=== PATIENT | female | born 1990 | race Asian ===

== ENCOUNTER 2020-10-29 13:35 | Emergency (ER) | payer OTHER, SELFPAY ==
[2020-10-29 13:52] VITALS: BP 117/79; PULSE 82; RESP 16; TEMP 37.1; O2SAT 100
--- NOTE | 2020-10-29 14:15 | ED.GENADULT ---
HPI - General Adult General Chief complaint: Urogenital-Female Stated complaint: UTI Time Seen by Provider: 10/29/20 14:15 Source: patient Mode of arrival: ambulatory Limitations: no limitations History of Present Illness HPI narrative: 30-year-old female patient presents to the [facility] with complaints of urinary symptoms for the past 2 days. Patient states she has had some low back pain, or abdominal pain, burning with urination urgency and frequency. Denies any body aches or chills but states that yesterday she did have a low-grade fever of 99. Patient states she has had kidney infections before in the past. Denies any or breast-feeding at this time. Patient states she has been trying to drink water and flushed out denies taking any other medications for her symptoms. Patient also states that she noticed blood in her urine today when urinating. Related Data Allergies Allergy/AdvReac Type Severity Reaction Status Date / Time No Known Allergies Allergy Verified 10/29/20 14:09 Review of Systems Review of Systems: Narrative: CONSTITUTIONAL: Denies fever, chills, or sweats. EYES: Denies visual changes, redness, or discharge. ENT: Denies rhinorrhea, congestion, sore throat, or otalgia. CARDIOVASCULAR: Denies chest pain, palpitations, or edema. RESPIRATORY: Denies cough or dyspnea. GASTROINTESTINAL: Positive lower abdominal pain, nausea, denies vomiting, or diarrhea. GENITOURINARY: Positive dysuria. Hematuria. SKIN: Denies rash or itching. MUSCULOSKELETAL: Positive low back pain, denies joint pain, or myalgia. NEUROLOGIC: Denies headache, numbness, or weakness. PSYCHIATRIC: Denies anxiety or depression. PMFSH Comments At the time of my signature I agree with nursing past medical history, surgical, social, and family history. There is no relevant family history pertinent to the presenting complaint. Exam Narrative: Exam Narrative: GENERAL: Well-appearing, well-nourished, and in no acute distress. HEAD: Normocephalic, atraumatic. EYES: PERRLA and EOMI. ENT: Nares clear, no rhinorrhea or epistaxis. Mucous membranes moist. NECK: Supple. No lymphadenopathy CHEST: Clear to auscultation. No respiratory distress. HEART: Regular rate and rhythm. No murmur heard. Normal peripheral pulses. ABDOMEN: Soft, nontender, nondistended, normal active bowel sounds. Patient does have some left-sided CVA tenderness and very slight right-sided CVA tenderness on percussion. EXTREMITIES: Normal range of motion. No edema. SKIN: Warm, dry, no rash. NEURO: No focal deficits. Alert and oriented x3. Course Vital Signs Vital signs: Vital Signs Temperature 37.1 C 10/29/20 13:52 Pulse Rate 82 10/29/20 13:52 Respiratory Rate 16 10/29/20 13:52 Blood Pressure 117/79 10/29/20 13:52 Pulse Oximetry 100 10/29/20 13:52 Temperature 37.1 C 10/29/20 13:52 Pulse Rate 82 10/29/20 13:52 Respiratory Rate 16 10/29/20 13:52 Blood Pressure 117/79 10/29/20 13:52 Pulse Oximetry 100 10/29/20 13:52 Vital signs reviewed Medical Decision Making Differential Diagnosis Differential Diagnosis: Differential diagnosis: Uncomplicated lower UTI, uncomplicated UTI, pyelonephritis Discussed with patient that there is not much that showed up on the urine dip however given her symptoms and her history of kidney infections before in the past we will go ahead and start her on antibiotics. Discussed with her she can take Tylenol or ibuprofen as needed for pain and also take some [id number] AZO as needed. Discussed with her that if the urine comes back showing that she needs a different type of antibiotic we will call and change it at that time otherwise if she does not hear from that she needs to complete the antibiotic as prescribed. Patient verbalized understanding denies any other questions or concerns at this time. Vital Signs Vital Signs: Vital Signs Temperature 37.1 C 10/29/20 13:52 Pulse Rate 82 10/29/20 13:52 Res
== END 2020-10-29 14:29 | disposition home or self-care (01) ==
PROVIDERS: Emergency Provider Nurse Practitioner Family
DX: N30.01 Acute cystitis with hematuria (principal)
CPT/HCPCS: 81003; 81025; 87077; 87086; 87088; 87186; 99213; G0463

== ENCOUNTER 2021-06-02 10:51 | Emergency (ER) | payer OTHER, SELFPAY ==
--- NOTE | ~2021-06-02 | US_ITS ---
EXAMINATION: US pelvic complete w TV DATE: 06/02/2021 11:57 INDICATION: Low back pain TECHNIQUE: Multiple transabdominal and endovaginal sonographic images of the pelvis were obtained. COMPARISON: None. FINDINGS: The uterus measures 7.5 x 4.3 x 3.7 cm. The endometrial complex measures 4 mm. There appear s to be a 6 mm intramural fibroid. The right ovary measures 3.3 x 2.7 x 2.0 cm. The left ovary measur es 2.4 x 2.2 x 1.4 cm. There is normal vascular flow in the ovaries. There is no free fluid in the pe lvis. IMPRESSION: 1. No sonographic correlate for the patient's symptoms. Reviewed, dictated and finalized at location A.
[2021-06-02 11:02] VITALS: BP 121/91; PULSE 89; RESP 18; TEMP 36.7; O2SAT 100
--- NOTE | 2021-06-02 11:26 | ED.BACK ---
HPI - Back Pain/Injury General Chief Complaint: Back Pain/Injury Stated Complaint: back pain radiating to hip Time Seen by Provider: 06/02/21 11:00 Source: patient and RN notes reviewed Mode of arrival: ambulatory Limitations: no limitations History of Present Illness HPI Narrative: This is 30 year old female who presents for evaluation of low back pain. She states she woke up 2 weeks ago with mid lower back pain. Her pain is worse with bending over. She reports sharp pain that radiates to her hip when she bends over. She denies limb numbness or weakness. She reports lower abdominal pain but she started her menstrual cycle 2 days. She reports her cycle is starting early. She reports history of scoliosis and ovarian cyst. Related Data Allergies Allergy/AdvReac Type Severity Reaction Status Date / Time No Known Allergies Allergy Verified 06/02/21 11:05 Review of Systems Review of Systems: All systems reviewed & are unremarkable except as noted in HPI and below PMFSH Past Medical History Medical History (Updated 06/02/21 @ 13:02 by Radha Dasilva MD) Ovarian cyst Scoliosis Surgical History Surgical History (Updated 06/02/21 @ 11:28 by Radha Dasilva MD) No pertinent past surgical history Social History Social History (Updated 06/02/21 @ 11:28 by Radha Dasilva MD) Smoking status: Never smoker Exam Const: General: no acute distress and alert Orientation/consciousness: patient oriented x3 Eyes: EOM: EOMs intact bilaterally Resp: Effort & Inspection: normal respiratory effort and no retractions Auscultation: clear to auscultation bilaterally Cardio: Rate: regular rate Rhythm: regular rhythm Heart sounds: no murmurs GI: GI Palp: Yes Soft to palpation, Yes Tenderness to palpation present (GI) (suprapubic) and No Guarding due to palpation present (GI) Back/Spine/Pelvis: Back: no CVA tenderness Thoracic/Lumbar Spine: No lumbar spinal tenderness and No straight leg raise positive Skin: General skin exam: normal color Rashes: no rashes Neuro: General: patient oriented x3, moves all extremities and CN's II-XI intact bilaterally Gait exam (Neuro): Normal gait present Psych: Mental Status: mental status grossly normal Affect: normal affect Course Reevaluation(s) Reevaluation #1: Patient reports she had back xray already for her back pain. She has known scoliosis. She asked about MRI. I explained that she will need to follow up with PCP as she has no symptoms that required emergent MRI. She denies urinary incontinence, retention, fever, leg weakness, saddle anesthesia. She has an appointment with PCP on Sunday. I reviewed US results showing fibroid and I explained Date: 06/02/21 Time: 12:59 Vital Signs Vital signs: Vital Signs Temperature 98.0 F 06/02/21 11:02 Pulse Rate 89 06/02/21 11:02 Respiratory Rate 18 06/02/21 11:02 Blood Pressure 121/91 H 06/02/21 11:02 Pulse Oximetry 100 06/02/21 11:02 Temperature 98.0 F 06/02/21 11:02 Pulse Rate 89 06/02/21 11:02 Respiratory Rate 18 06/02/21 11:02 Blood Pressure 121/91 H 06/02/21 11:02 Pulse Oximetry 100 06/02/21 11:02 MDM - Back Pain/Injury Lab Data Attestation: I reviewed the patient's lab results. Labs: UCG Bedside Result Negative Reference Range: Negative Imaging Data Radiologist's impression: ITS Impressions Pelvic/Transvag US 06/02/21 12:25 IMPRESSION: 1. No sonographic correlate for the patient's symptoms. Discharge Plan Discharge Clinical Impression: Strain of lumbar region Qualifiers: Encounter type: initial encounter Qualified Code(s): S39.012A - Strain of muscle, fascia and tendon of lower back, initial encounter Patient Disposition: Home, Self-Care Condition: Stable Instructions: Back Pain (ED), Lower Back Exercises (ED) Additional Instructions: If you develop fever,
[2021-06-02] MEDS: KETOROLAC (*BKC) 60 MG/2 ML VIAL IM (12:18)
== END 2021-06-02 13:12 | disposition home or self-care (01) ==
PROVIDERS: Emergency Provider General Practice; PCP Nurse Practitioner
DX: S39.012A Strain of muscle, fascia and tendon of lower back, initial encounter (principal); X58.XXXA Exposure to other specified factors, initial encounter
CPT/HCPCS: 76830; 76856; 81025; 96372; 99284; J1885

== ENCOUNTER 2021-12-20 12:10 | Emergency (ER) | payer OTHER, SELFPAY ==
--- NOTE | ~2021-12-20 | CT_ITS ---
EXAMINATION: CT brain wo con EXAM DATE: 12/20/2021 14:53 INDICATION: Left posterior head injury 5 days ago, balance issues, light sensitivity. Ears are ringin g. Initial encounter. TECHNIQUE: Spiral CT of the head was performed without contrast. Axial, coronal and sagittal images were reviewed. The dose-length product (DLP) for this examination was 529.67 mGy-cm. The exposure w as tailored according to patient size, and iterative reconstruction (ASIR) was used as additional dos e reduction technique. There is no prior study for comparison. FINDINGS: There is no acute intraparenchymal hemorrhage. No evidence of intraparenchymal brain mass lesion. No evidence of acute infarction. There is no mass effect or midline shift. The ventricles are normal in size. There are no extra-axial collections. There are no acute calvarial fractures. T he orbits are unremarkable. Soft tissue is unremarkable. The visualized sinuses and mastoid air edwardo ls are well aerated. IMPRESSION: 1. Unremarkable head CT examination. Reviewed, dictated and finalized at location A. [facility]
[2021-12-20 12:13] VITALS: BP 134/96; PULSE 85; RESP 18; TEMP 36.2; O2SAT 100
--- NOTE | 2021-12-20 15:20 | ED.HEATRA ---
HPI - Head Injury General Chief complaint: Head Injury Stated complaint: Head Injury Sunday, Ear Ringing Time Seen by Provider: 12/20/21 14:14 Source: patient and RN notes reviewed Mode of arrival: ambulatory Limitations: no limitations History of Present Illness HPI Narrative: This is a 31 year old female who presents for evaluation of head injury. PAtient states on Sunday she accidentally slipped on ice and she fell backwards and hit her head. She denies having LOC, but she reports having ringing in her ears, nausea, dry heaves, and slurred speech. She reports she has headaches intermittent. She denies any vomiting and her nausea has resolved. She went to [facility] today and it was report she has having issues with tandem gait. Related Data Allergies Allergy/AdvReac Type Severity Reaction Status Date / Time No Known Allergies Allergy Verified 12/20/21 14:24 Review of Systems Review of Systems: All systems reviewed & are unremarkable except as noted in HPI and below PMFSH Past Medical History Medical History Ovarian cyst Scoliosis Surgical History Surgical History No pertinent past surgical history Social History Social History Smoking status: Never smoker Exam Const: General: no acute distress and alert Orientation/consciousness: patient oriented x3 HENMT: Head: normocephalic and atraumatic Ears: hearing grossly normal bilaterally, external ears normal and TM's normal bilaterally Face and sinus: normal facial exam, sinuses nontender and face symmetric Mouth: Yes Normal oral and palatal mucosa present, Yes lip normal, Yes tongue normal, Yes oropharynx normal and Yes moist mucous membranes Eyes: Pupils: Equal, round and reactive pupils present EOM: EOMs intact bilaterally Chest: Chest palpation & inspection: normal inspection of the chest Resp: Effort & Inspection: normal respiratory effort and no retractions Auscultation: clear to auscultation bilaterally Cardio: Rate: regular rate Rhythm: regular rhythm Heart sounds: no murmurs GI: GI Palp: Yes Soft to palpation, No Tenderness to palpation present (GI) and No Guarding due to palpation present (GI) Auscultation: normal bowel sounds Back/Spine/Pelvis: Back: no CVA tenderness Skin: General skin exam: normal color Rashes: no rashes Neuro: General: patient oriented x3 and moves all extremities Cranial nerves: Yes CN's II-XII intact bilaterally Extrem: General: normal to inspection Psych: Mental Status: mental status grossly normal Affect: normal affect Course Reevaluation(s) Reevaluation #1: I discussed with patient that CT is unremarkable. She have CT brain performed as in outside facility it was reported she has abnormal neuro exam. Here exam is unremarkable. Date: 12/20/21 Time: 15:29 Vital Signs Vital signs: Vital Signs Temperature 97.1 F L 12/20/21 12:13 Pulse Rate 85 12/20/21 12:13 Respiratory Rate 18 12/20/21 12:13 Blood Pressure 134/96 H 12/20/21 12:13 Pulse Oximetry 100 12/20/21 12:13 Temperature 97.1 F L 12/20/21 12:13 Pulse Rate 85 12/20/21 12:13 Respiratory Rate 18 12/20/21 12:13 Blood Pressure 134/96 H 12/20/21 12:13 Pulse Oximetry 100 12/20/21 12:13 MDM - Head Injury Imaging Data Radiologist's impression: ITS Impressions Head CT 12/20/21 14:55 IMPRESSION: 1. Unremarkable head CT examination. Discharge Plan Discharge Clinical Impression: Postconcussion syndrome Closed head injury Qualifiers: Encounter type: initial encounter Qualified Code(s): S09.90XA - Unspecified injury of head, initial encounter Patient Disposition: Home, Self-Care Condition: Stable Instructions: Concussion (ED), Head Injury (ED), Post Concussion Syndrome (ED) Additional Instructions: Please follow
== END 2021-12-20 15:39 | disposition home or self-care (01) ==
PROVIDERS: Emergency Provider General Practice
DX: F07.81 Postconcussional syndrome (principal); G44.309 Post-traumatic headache, unspecified, not intractable; W00.0XXA Fall on same level due to ice and snow, initial encounter
CPT/HCPCS: 70450; 99284